=== PATIENT | female | born 1990 | race Caucasian/White ===

== ENCOUNTER 2019-02-26 21:35 | Emergency (ER) | payer OTHER | END 2019-02-27 00:56 | disposition home or self-care (01) | LOC: ER FS 02-27 00:56 ==

== ENCOUNTER 2019-02-27 21:00 | Inpatient (IN) | payer BC, OTHER ==
[~2019-02-27] VITALS: Ht 165.1 cm; Wt 77.1 kg
--- NOTE | 2019-02-27 21:10 | NUR ---
ANGELA DAVEY presented to unit via ambulation from home/ED, accompanied by , with c/o ABD PAIN. ANGELA DAVEY weighed, gowned, voided, and to bed. EFHM and TOCO applied, VS taken. ANGELA DAVEY oriented to bed controls, call light, TV, heat, and A/C controls.
[2019-02-27 21:17] VITALS: BP 104/63
[2019-02-27] MEDS ORDERED: D5 LR IV SOLUTION 1,000 ML IV ONE (21:34)
[2019-02-27] MEDS ORDERED: TERBUTALINE INJ 1 MG/ML (BRETHINE) AMP ONE (21:34)
[2019-02-27] MEDS ORDERED: TERBUTALINE INJ 1 MG/ML (BRETHINE) AMP SC ONE (21:45)
[2019-02-27] MEDS: D5 LR IV SOLUTION 1,000 ML IV SCH ×2 (21:54→23:18)
[2019-02-27] MEDS ORDERED: LOPERAMIDE 2 MG (IMODIUM) TABLET ONE (21:59)
[2019-02-27] MEDS: LOPERAMIDE 2 MG (IMODIUM) TABLET PO PRN ×2 (22:07→22:58)
[2019-02-27] MEDS ORDERED: ONDANSETRON 4 MG/2 ML (SDV) Z0FRAN ONE (22:16)
[2019-02-27] MEDS: ONDANSETRON 4 MG/2 ML (SDV) Z0FRAN IVP PRN ×2 (22:23→22:59)
[2019-02-27] MEDS ORDERED: fentaNYL INJECTION 100 MCG/2 ML AMP IVP ONE (23:00)
[2019-02-28] VITALS (27 sets, daily range): BP systolic 101–121; BP diastolic 56–70
[2019-02-28] MEDS: LOPERAMIDE 2 MG (IMODIUM) TABLET PO PRN (04:26)
[2019-02-28] MEDS ORDERED: TERBUTALINE INJ 1 MG/ML (BRETHINE) AMP SC ONE ×2 (06:00→12:15)
[2019-02-28] MEDS: ONDANSETRON 4 MG/2 ML (SDV) Z0FRAN IVP PRN (06:04)
[2019-02-28] MEDS: D5 LR IV SOLUTION 1,000 ML IV SCH ×2 (07:00→15:36)
--- NOTE | 2019-02-28 07:27 | History & Physical-OB ---
OB - Chief Complaint & HPI Date/Time Date of Admission: February 27, 2019Date of Admission: Date seen by a Provider: Feb 28, 2019 Time Seen by a Provider: 07:00 Chief Complaint/History OB-Reason for Admission/Chief: Intrauterine at 34 weeks 2. Diarrhea 3. Nausea with Vomiting 4. External Hemorroids 5. Bloody Stools Hx : 1 Hx Para: 0 Expected Date of Delivery: Apr 06, 2019 Gestational Age in Weeks: 34 Gestational Age in Days: 4 Admission Nurse Assessment Rev: Yes Allergies and Home Medications Allergies Coded Allergies: No Known Drug Allergies (Unverified , 02/26/19) Patient Home Medication List Home Medication List Reviewed: Yes OB - History Hx of Present Care: Yes Ultrasounds: Normal mid trimester US Obstetrical Complications: None Medical Complications: None Other Concerns: None Information Induced Hypertension: No Maternal Gestational Diabetes: No Hemorrhage: No Obstetrical History Hx : 1 Hx Para: 0 Hx Total # of Abortions (Spona: 0 Patient Past Medical History Noncontributory Social History/Family History Recent Infectious Disease Expo: No 2nd Hand Smoke Exposure: No OB - Admission Exam Physical Exam Vitals: Vital Signs 02/28/19 02:09 Temp 96.3 Pulse 88 Resp 18 B/P (MAP) 119/69 (86) O2 Delivery Room Air HEENT: NCAT Heart: Rhythm Normal Lungs: Clear Abdomen: Gravid Extremities: Normal Cervical Dilatation: None Station: Ballotable Membranes: Intact Heart Rate: 130's Accelerations: Accelerations Present Decelerations: No Decelerations Short Term Variability: Present Residential Variability: Average (6-25) Contractions on Admission: 6-10 Minutes Apart (Irregular) Intensity: Mild Salmon Scoring Tool (Modified) Dilation (cm): 0/Closed (0) Effacement (%): 0-30% (0) Descent/Station: -3 (0) Cervix Consistency: Medium(1) Subtract 1 point for: Nulliparity (-1) OB - Assessment/Plan/Diagnosis Assessment Assessment: other (Intrauterine at 34 weeks 2. Diarrhea 3. Nausea with Vomiting 4. External Hemorrhoids 5. Bloody Stools) Admission Dx at 34 weeks 2. Diarrhea 3. Nausea with Vomiting 4. External Hemorrhoids 5. Bloody Stools Admission Status: Inpatient Order (span 2 midnights) Reason for Inpatient Admission: with uncontrolled diarrhea Plan Plan: Other (IV fluids and antidiarrheals and antiemetics. External Monitor with observation) LUPE HOLLIS DO Feb 28, 2019 07:27
[2019-02-28] MEDS ORDERED: LACTATED RINGERS 500 ML IV SCH (07:52)
[2019-02-28] MEDS ORDERED: NIFEdipine 10 MG CAPS (WOMEN'S SERVICES ONLY!!!) PO NR (08:00)
--- NOTE | 2019-02-28 08:00 | NUR ---
ASSESSMENT PERFORMED. SEE LABOR FLOW SHEET FOR NURSE'S NOTES.
[2019-02-28] MEDS ORDERED: NIFEdipine 10 MG CAPS (WOMEN'S SERVICES ONLY!!!) PO SCH (12:00)
[2019-02-28] MEDS ORDERED: fentaNYL INJECTION 100 MCG/2 ML AMP IVP NR (12:45)
--- OUTSIDE RECORDS SUMMARY | 2019-02-28 12:55 | XMS REPORT | Continuity of Care Document ---
Author Organization Unknown Address Unknown Phone Unavailable Allergies There is no data. Medications There is no data. Problems There is no data. Procedures There is no data. Results Test Result Range QUAD SCREEN - 11/09/18 16:10 Maternal Weight 151 lbs NRG Est'd Date of Delivery 04/06/2019 NRG ERNIE Determined by LMP NRG Mother's Ethnic Origin NRG Number of Fetuses 1 NRG Insulin Depend Diabetic NO NRG Repeat Specimen NO NRG Hx Of Neural Tube Defects NO NRG Prev Down Synd NO NRG Donor Egg NO NRG Donor Age: Egg Retrieval NOT GIVEN NRG INTERPRETATION: NRG Risk for ONTD <1 IN 5000 NRG Age Risk Down Syndrome 1 IN 1001 NRG FRANCINE Down Syndrome Risk <1 IN 5000 NRG FRANCINE Trisomy 18 Risk <1 IN 5000 NRG AFP, Serum 39.9 ng/mL NRG AFP MoM 0.84 NRG Estriol, Free 1.54 ng/mL NRG Estriol MoM 1.05 NRG hCG, Serum 16.23 IU/mL NRG hCG MoM 0.75 NRG Inhibin A, Dimeric 189 pg/mL NRG Inhibin A MoM 1.10 NRG COMMENTS: NRG COMMENT NRG Calc'd Gestational Age 18.9 weeks NRG Cigarette smoker NOT GIVEN NRG GLUCOSE OZIEL 1 HOUR - 01/07/19 11:11 GLUCOSE, POSTPRANDIAL/ 1 HOUR 115 mg/dL See Note: CBC - 01/07/19 11:11 WHITE BLOOD CELL COUNT 9.8 Thousand/uL 3.8-10.8 RED BLOOD CELL COUNT 3.85 Million/uL 3.80-5.10 HEMOGLOBIN 11.5 g/dL 11.7-15.5 HEMATOCRIT 35.0 % 35.0-45.0 MCV 90.9 fL 80.0-100.0 MCH 29.9 pg 27.0-33.0 MCHC 32.9 g/dL 32.0-36.0 RDW 12.7 % 11.0-15.0 PLATELET COUNT 191 Thousand/uL 140-400 MPV 11.4 fL 7.5-12.5 ABSOLUTE NEUTROPHILS 7909 cells/uL 2878-8658 ABSOLUTE LYMPHOCYTES 1333 cells/uL 850-3900 ABSOLUTE MONOCYTES 441 cells/uL 200-950 ABSOLUTE EOSINOPHILS 88 cells/uL 15-500 ABSOLUTE BASOPHILS 29 cells/uL 0-200 NEUTROPHILS 80.7 % NRG LYMPHOCYTES 13.6 % NRG MONOCYTES 4.5 % NRG EOSINOPHILS 0.9 % NRG BASOPHILS 0.3 % NRG SYPHILIS (RPR W/ REFLEX CONFIRMATION) - 01/07/19 11:11 RPR (DX) W/REFL TITER AND CONFIRMATORY TESTING NON-REACTIVE NON-REACTIVE Encounters ACCT No. Visit Date/Time Discharge Status Pt. Type Provider Facility Loc./Unit Complaint [id number] 02/16/2019 09:30:00 02/16/2019 23:59:59 [facility] Outpatient AGNES KINCAID [facility] [id number] 01/07/2019 10:00:00 Document Registration [id number] 11/09/2018 15:45:00 Document Registration
--- NOTE | 2019-02-28 13:04 | Consultation ---
HPI History of Present Illness: 28 yo F that presented to L&D with bloody diarrhea that started yesterday. She is currently 34 weeks and has had no complications throughout this . States that she went to eat at a restaurant on and after that she has had profuse diarrhea and then yesterday starting passing blood. No one else in the family is sick. She has never had anything like this in the past. She is having abdominal pain and some contractions. They have sent down stool cultures. Source: patient Exam Limitations: no limitations Date seen by provider: Feb 28, 2019 Time Seen by Provider: 11:35 Attending Physician Mack Mendoza MD PCP Sundeep Perrin MD Consult Date of Admission Feb 28, 2019 at 12:20 Home Medications Home Medications Reviewed patient Home Medication Reconciliation performed by pharmacy medication reconciliations machine packaging technician and/or nursing. Patients Allergies have been reviewed. Allergies Coded Allergies: No Known Drug Allergies (Unverified , 02/26/19) JPC-Zeleoc-Bunzrt Hx Patient Social History 2nd Hand Smoke Exposure: No Recent Foreign Travel: No Contact w/other who traveled: No Recent Hopitalizations: No Recent Infectious Disease Expo: No Physical Abuse Screen: No Sexual Abuse: No Family Medical History Significant Family History: No Pertinent Family Hx Review of Systems (CHC) Constitutional: chills; No fever; malaise EENTM: no symptoms reported Respiratory: no symptoms reported; No cough, No dyspnea on exertion, No short of breath Cardiovascular: no symptoms reported; No chest pain, No edema, No palpitations Gastrointestinal: abdominal pain, diarrhea (Bloody) Genitourinary: no symptoms reported; No dysuria, No frequency, No hematuria : Yes Musculoskeletal: no symptoms reported; No back pain, No joint pain, No muscle pain Skin: no symptoms reported Psychiatric/Neurological: No Symptoms Reported Physical Exam-([facility]) Physical Exam Vital Signs VS - Last 72 Hours, by Label 02/27/19 02/28/19 21:17 02:09 Temp 97.0 96.3 Pulse 94 88 Resp 18 18 B/P (MAP) 104/63 (77) 119/69 (86) O2 Delivery Room Air Room Air Capillary Refill : General Appearance: mild distress Respiratory: chest non-tender, lungs clear, normal breath sounds, no respiratory distress, no accessory muscle use Cardiovascular: normal peripheral pulses, regular rate, rhythm, no edema, no murmur Gastrointestinal: normal bowel sounds, soft, other (Gravid uterus with irratibi lity) Rectal: heme positive stool, hemorrhoids Extremities: no pedal edema, no calf tenderness Neurologic/Psychiatric: alert, oriented x 3 Skin: normal color, warm/dry Assessment/Plan Assessment/Plan Admission Status: Observation (1) Bloody stools Status: Acute Assessment & Plan: - Concerned for infectious source given history, will get CBC, Stool cultures pending, Consult Dr Villasenor, VS and hgb remain stable (2) 34 weeks gestation of (3) Uterine contractions MACK MENDOZA MD Feb 28, 2019 13:04
[2019-02-28 13:33] LABS: BASOPHILS % (AUTO) 0 % (0-10); EOSINOPHILS % (AUTO) 0 % (0-10); HEMATOCRIT 35 % (35-52); HEMOGLOBIN 11.3 G/DL (11.5-16.0); LYMPHOCYTES # (AUTO) 0.9 X 10^3 (1.0-4.0); LYMPHOCYTES % (AUTO) 6 % (12-44); MEAN CORPUSCULAR HEMOGLOBIN 29 PG (25-34); MEAN CORPUSCULAR HGB CONC 33 G/DL (32-36); MEAN CORPUSCULAR VOLUME 90 FL (80-99); MEAN PLATELET VOLUME 11.2 FL (7.4-10.4); MONOCYTES # (AUTO) 1.2 X 10^3 (0.0-1.0); MONOCYTES % (AUTO) 8 % (0-12); NEUTROPHILS # (AUTO) 12.5 X 10^3 (1.8-7.8); NEUTROPHILS % (AUTO) 85 % (42-75); PLATELET COUNT 165 10^3/uL (130-400); RED CELL DISTRIBUTION WIDTH 13.1 % (10.0-14.5); WHITE BLOOD COUNT 14.7 10^3/uL (4.3-11.0)
[2019-02-28] MEDS ORDERED: CALCIUM GLUC. 10% 4.65 MEQ/10 ML VIAL IV PRN (14:15)
[2019-02-28] MEDS: MAGNESIUM SULFATE DRIP 500 ML IV SCH (15:55)
[2019-02-28] MEDS ORDERED: MAGNESIUM 4 GM/100 ML IVPB 100 ML IV SCH (16:15)
--- NOTE | 2019-02-28 16:44 | Consultation - Surgery ---
History of Present Illness History of Present Illness Patient Consulted On(vania/time) 02/28/19 16:38 Date Seen by Provider: Feb 28, 2019 Time Seen by Provider: 13:10 History of Present Illness Consult requested by Dr. Mendoza for bloody diarrhea. Seen and evaluated in Labor and Delivery. Patient 34 weeks and 5 days . She states diarrhea began 3 days ago after eating [place] food. First noticed blood in her stool yesterday. It started out as a small amount of blood in the stool but she states "now it is straight blood". She also complains of nausea and had one episode of emesis last night. She denies any pain or constipation. No family history of Crohns disease or ulcerative colitis. at bedside. Allergies and Home Medications Allergies Coded Allergies: No Known Drug Allergies (Unverified , 02/26/19) Patient Home Medication List Home Medication List Reviewed: Yes Past Whuvacu-Bnijvw-Fxmwvh Hx Patient Social History Alcohol Use: Denies Use 2nd Hand Smoke Exposure: No Recent Foreign Travel: No Contact w/Someone Who Travel: No Recent Infectious Disease Expo: No Recent Hopitalizations: No Physical Abuse Screen: No Sexual Abuse: No Seasonal Allergies Seasonal Allergies: No Surgeries History of Surgeries: Yes Surgeries: Orthopedic, Tonsillectomy Respiratory History of Respiratory Disorde: No Cardiovascular History of Cardiac Disorders: No Neurological History of Neurological Disord: No Reproductive System Hx : 1 Hx Para: 0 Hx Total # of Abortions (Spona: 0 Genitourinary History of Genitourinary Disor: No Gastrointestinal History of Gastrointestinal Di: No Musculoskeletal History of Musculoskeletal Dis: No Endocrine History of Endocrine Disorders: No HEENT History of HEENT Disorders: No Cancer History of Cancer: No Psychosocial History of Psychiatric Problem: No Integumentary History of Skin or Integumenta: No Blood Transfusions History of Blood Disorders: No Family Medical History Significant Family History: No Pertinent Family Hx Review of Systems-General Constitutional: see HPI EENTM: no symptoms reported Respiratory: no symptoms reported Cardiovascular: no symptoms reported Gastrointestinal: see HPI, diarrhea, nausea, vomiting Genitourinary: no symptoms reported : Yes Musculoskeletal: no symptoms reported Skin: no symptoms reported Psychiatric/Neurological: No Symptoms Reported Physical Exam-General Problems Physical Exam Vital Signs Vital Signs - First Documented 02/27/19 21:17 Temp 97.0 Pulse 94 Resp 18 B/P (MAP) 104/63 (77) O2 Delivery Room Air Capillary Refill : General Appearance: WD/WN, no apparent distress HEENT: PERRL/EOMI, normal ENT inspection, pharynx normal Neck: non-tender, full range of motion, supple Respiratory: chest non-tender, no respiratory distress, no accessory muscle use Cardiovascular: normal peripheral pulses, regular rate, rhythm, no edema Gastrointestinal: non tender, soft, other (35 week abdomen) Rectal: normal rectal tone, other (no gross blood) Back: normal inspection, no CVA tenderness Extremities: normal range of motion, non-tender, normal inspection, no pedal edema Neurologic/Psychiatric: logging equipment operator II-XII nml as tested, no motor/sensory deficits, alert, normal mood/affect, oriented x 3 Skin: normal color, warm/dry Lymphatic: no adenopathy Data Review Labs Laboratory Tests 02/28/19 13:15: White Blood Count 14.7H, Red Blood Count 3.85L, Hemoglobin 11.3L, Hematocrit 35, Mean Corpuscular Volume 90, Mean Corpuscular Hemoglobin 29, Mean Corpuscular Hemoglobin Concent 33, Red Cell Distribution Width 13.1, Platelet Count 165, Mean Platelet Volume 11.2H, Neutrophils (%) (Auto) 85H, Lymphocytes (%) (Auto) 6L, Monocytes (%) (Auto) 8, Eosinophils (%) (Auto) 0, Basophils (%) (Auto) 0, Neutrophils # (Auto) 12.5H, Lymphocytes # (Auto) 0.9L, Monocytes # (Auto) 1.2H, Eosinophils # (Auto) 0.0, Basophils # (Auto) 0.0 Microbiology 02/28/19 C. difficile GDH Antigen & Toxins - Final, Complete 02/28/19 Rotavirus Antigen - Final, Complete Assessment/Plan Assessment/Plan Assessment/Plan Bloody diarrhea 34 weeks 5 days Clear liquid diet Follow hgb monitoring Plan anoscopy, see note below Transfuse as needed, prbc Stool cultures Recommend colonoscopy 3-6 months after delivery for further evaluation of bleeding cause if worsening condition or bleeding worsening would consider endoscopy at that time. PROCEDURE: Anoscope inserted into rectum after digital rectal exam. No palpable mass palpable. No gross blood. Rectum had normal appearing mucosa. No trauma to mucosa or anal canal. Anoscope was slowly removed noting no other pathology. DEQUAN SOTO DO Feb 28, 2019 16:44
[2019-02-28] MEDS ORDERED: fentaNYL INJECTION 100 MCG/2 ML AMP IVP ONE (18:15)
--- NOTE | 2019-02-28 20:05 | NUR ---
Pt resting quietly in room. Assessments done. Reflexes diminished. Urine output 48cc. States the pressure in her chest is the same as before. Rating pain a 4/10. No needs at this time.
--- NOTE | 2019-02-28 21:00 | NUR ---
37cc of urine output.
--- NOTE | 2019-02-28 21:45 | NUR ---
Assisted pt to bathroom. Had bloody stool-200cc. Pt states it is the same that it has been throughout the day. Has not had bowel movement since approx 1500 today. VS and reflexes done. Urine output 38cc.
--- NOTE | 2019-02-28 22:04 | NUR ---
Dr. Giraldo notified of pt status and lab results. Order to repeat MG level in morning with other labs. Can give Fentanyl 50mcg again if needed. No other orders at this time.
[2019-03-01] VITALS (26 sets, daily range): BP systolic 100–117; BP diastolic 57–69
[2019-03-01] MEDS: MAGNESIUM SULFATE DRIP 500 ML IV SCH ×4 (00:13→23:57)
--- NOTE | 2019-03-01 04:00 | NUR ---
Helped pt up to bathroom. bloody Bm. 350cc
[2019-03-01] MEDS: D5 LR IV SOLUTION 1,000 ML IV SCH ×2 (04:32→23:57)
[2019-03-01 05:19] LABS: BASOPHILS % (AUTO) 0 % (0-10); EOSINOPHILS % (AUTO) 0 % (0-10); HEMATOCRIT 34 % (35-52); HEMOGLOBIN 11.4 G/DL (11.5-16.0); LYMPHOCYTES % (AUTO) 6 % (12-44); MEAN CORPUSCULAR HEMOGLOBIN 30 PG (25-34); MEAN CORPUSCULAR HGB CONC 34 G/DL (32-36); MEAN CORPUSCULAR VOLUME 89 FL (80-99); MEAN PLATELET VOLUME 11.4 FL (7.4-10.4); MONOCYTES # (AUTO) 1.5 X 10^3 (0.0-1.0); MONOCYTES % (AUTO) 8 % (0-12); NEUTROPHILS # (AUTO) 15.3 X 10^3 (1.8-7.8); NEUTROPHILS % (AUTO) 86 % (42-75); PLATELET COUNT 179 10^3/uL (130-400); RED CELL DISTRIBUTION WIDTH 13.3 % (10.0-14.5); WHITE BLOOD COUNT 17.8 10^3/uL (4.3-11.0)
--- NOTE | 2019-03-01 06:30 | NUR ---
Dr Giraldo here. Order to give 500cc bolus of d5lr. Will continue with mag. No other orders at this time.
--- NOTE | 2019-03-01 07:00 | Progress Note ---
Standard Progress Note Progress Notes/Assess & Plan Date Seen by a Provider: Mar 01, 2019 Time Seen by a Provider: 06:45 Progress/Assessment & Plan Subjective: Ms. Mehta admits to feeling a little better. Admits to only having three loose stools overnight, still having irregular contractions despite being on Magnesium. No more vomiting. Objective: Vital sign are stable Heart: Regular rate and rhythm Lungs: Clear to auscultation bilaterally Abdomen: Bowel sounds throughout abdomen, gravid, FHR 130, irregular contractions Assessment: Intrauterine at 34 weeks 2. Diarrhea 3. Bloody Stools 4. Threatened Labor 5. Hyperemesis Plan: Awaiting stool cultures. Dr. Mendoza is following diarrhea and bloody stools. We will continue Mg Sulfate for now, but will try to get her switched over to oral Procardia. External Monitoring with observation. Final Diagnosis Intrauterine at 34 weeks 2. Diarrhea 3. Bloody Stools 4. Hyperemesis 5. Threatened Labor LUPE HOLLIS DO Mar 01, 2019 07:00
--- NOTE | 2019-03-01 07:33 | NUR ---
Report given to Karthik WU
--- NOTE | 2019-03-01 08:13 | Progress Note - Surgery ---
DARCI RODRIGUEZ,MED STUDENT 03/01/19 0813: Subjective Date Seen by a Provider: Mar 01, 2019 Time Seen by a Provider: 07:35 Subjective/Events-last exam Patient has had 3 more episodes of bloody diarrhea since yesterday at 1300. Hgb today is 11.4, slightly increased from 11.3 yesterday. No new complaints at this time. Denies nausea, vomiting, or abdominal pain. Family at bedside. Stool culture reviewed which was negative for C.difficile antigen, C.difficile toxin A/B negative, and rotavirus toxin negative Review of Systems General: No Chills Gastrointestinal: Diarrhea, Hematochezia; No: Nausea, Vomiting, Abdominal Pain Objective Exam Vital Signs Date Time Temp Pulse Resp B/P (MAP) Pulse Ox O2 Delivery O2 Flow Rate FiO2 03/01/19 07:06 100 20 108/69 (82) 03/01/19 07:05 97.8 100 20 108/69 (82) 03/01/19 06:00 97 20 110/67 (81) 03/01/19 06:00 97.9 100 20 107/67 (80) 03/01/19 05:05 97 20 110/67 (81) 03/01/19 05:05 97 18 110/67 (81) 03/01/19 04:15 96 20 102/63 (76) 03/01/19 04:15 97.2 96 18 102/63 (76) Room Air 03/01/19 03:06 100 20 107/66 (80) 03/01/19 03:00 97.4 108 20 107/66 (80) 03/01/19 02:00 97.6 102 20 104/61 (75) 03/01/19 02:00 102 20 104/61 (75) 03/01/19 01:00 104 20 117/58 (77) 03/01/19 01:00 97.2 104 20 117/58 (77) Room Air 03/01/19 00:00 97.2 109 20 101/62 (75) 03/01/19 00:00 109 20 101/62 (75) 02/28/19 23:00 97.9 104 20 112/66 (81) Room Air 02/28/19 23:00 104 20 112/66 (81) 02/28/19 22:00 107 20 114/70 (85) 02/28/19 22:00 98.1 107 18 114/70 (85) 02/28/19 21:00 99.0 100 18 115/65 (82) Room Air 02/28/19 21:00 100 20 115/65 (82) 02/28/19 20:00 105 18 117/66 (83) 02/28/19 20:00 99.4 105 18 117/66 (83) Room Air 02/28/19 19:02 100 18 121/70 (87) Room Air 02/28/19 19:00 100 18 121/70 (87) 02/28/19 18:00 96 18 114/67 (83) 02/28/19 18:00 97.7 96 18 114/67 (83) Room Air 02/28/19 17:31 106 18 115/69 (84) Room Air 02/28/19 17:30 106 18 115/69 (84) 02/28/19 17:02 98 18 114/66 (82) 02/28/19 17:00 98 18 114/66 (82) 02/28/19 16:40 95 18 116/68 (84) 02/28/19 16:40 95 18 116/68 (84) 02/28/19 16:23 100 18 110/68 (82) Room Air 02/28/19 16:22 100 18 110/68 (82) 02/28/19 16:10 93 18 113/65 (81) Room Air 02/28/19 16:08 93 18 113/65 (81) 02/28/19 15:55 95 18 109/65 (80) Room Air 02/28/19 15:52 95 18 109/65 (80) 02/28/19 15:00 98.7 93 18 116/68 (84) Room Air 02/28/19 14:06 100 18 114/63 (80) Room Air 02/28/19 13:06 109 18 114/65 (81) Room Air 02/28/19 11:50 104 18 101/58 (72) Room Air 02/28/19 10:44 104 18 111/63 (79) Room Air 02/28/19 09:51 113 18 110/64 (79) Room Air 02/28/19 08:42 116 18 101/56 (71) Room Air l I & O 03/01/19 07:00 Intake Total 4850 ml Output Total 1522 ml Balance 3328 ml Capillary Refill : General Appearance: No Apparent Distress HEENT: PERRL/EOMI, Normal ENT Inspection Neck: Full Range of Motion, Normal Inspection, Non Tender Respiratory: Chest Non Tender, No Accessory Muscle Use, No Respiratory Distress Cardiovascular: Regular Rate, Rhythm Gastrointestinal: non tender, soft, other (35 week abdomen) Extremity: Normal Inspection, Normal Range of Motion, Non Tender Neurologic/Psychiatric: Alert, Oriented x3, No Motor/Sensory Deficits, Normal Mood/Affect Skin: Normal Color, Warm/Dry Lymphatic: No Adenopathy Results Lab Laboratory Tests 02/28/19 13:15: White Blood Count 14.7H, Red Blood Count 3.85L, Hemoglobin 11.3L, Hematocrit 35, Mean Corpuscular Volume 90, Mean Corpuscular Hemoglobin 29, Mean Corpuscular Hemoglobin Concent 33, Red Cell Distribution Width 13.1, Platelet Count 165, Mean Platelet Volume 11.2H, Neutrophils (%) (Auto) 85H, Lymphocytes (%) (Auto) 6L, Monocytes (%) (Auto) 8, Eosinophils (%) (Auto) 0, Basophils (%) (Auto) 0, Neutrophils # (Auto) 12.5H, Lymphocytes # (Auto) 0.9L, Monocytes # (Auto) 1.2H, Eosinophils # (Auto) 0.0, Basophils # (Auto) 0.0 02/28/19 21:30: Magnesium Level 4.5H 03/01/19 05:00: White Blood Count 17.8H, Red Blood Count 3.79L, Hemoglobin 11.4L, Hematocrit 34L , Mean Corpuscular Volume 89, Mean Corpuscular Hemoglobin 30, Mean Corpuscular Hemoglobin Concent 34, Red Cell Distribution Width 13.3, Platelet Count 179, Mean Platelet Volume 11.4H, Neutrophils (%) (Auto) 86H, Lymphocytes (%) (Auto) 6L, Monocytes (%) (Auto) 8, Eosinophils (%) (Auto) 0, Basophils (%) (Auto) 0, Neutrophils # (Auto) 15.3H, Lymphocytes # (Auto) 1.0, Monocytes # (Auto) 1.5H, Eosinophils # (Auto) 0.0, Basophils # (Auto) 0.0, Magnesium Level 5.5#*H Microbiology 8/5/19 C. difficile GDH Antigen & Toxins - Final, Complete 02/28/19 Rotavirus Antigen - Final, Complete Assessment/Plan Assessment/Plan Assessment/Plan Bloody diarrhea 34 weeks 6 days Follow hgb monitoring Transfuse as needed, prbc Recommend colonoscopy 3-6 months after delivery for further evaluation of bleeding cause if worsening condition or bleeding worsening would consider endoscopy at that time. will follow DEQUAN VILLASENOR DO 03/01/19 1653: Subjective Subjective/Events-last exam Patient no abdominal pain. Still some bloody diarrhea. + shiga toxin Assessment/Plan Assessment/Plan Assessment/Plan + shiga toxin conservative management repeat labs in am Supervisory-Addendum Brief Verification & Attestation Time: Verification & Attestat.: 16:52 Participated in pt care: history, MDM, physical Personally performed: exam, history, MDM, supervision of care Care discussed with: Medical Student Procedures: n/a Results interpretation: Verified all documentation Verification and Attestation of Medical Student E/M Service A medical student performed and documented this service in my presence. I reviewed and verified all information documented by the medical student and made modifications to such information, when appropriate. I personally performed the physical exam and medical decision making. Dequan Villasenor, Mar 01, 2019,16:52 DARCI RODRIGUEZ,MED STUDENT Mar 01, 2019 08:13 DEQUAN VILLASENOR DO Mar 01, 2019 16:53
--- NOTE | 2019-03-01 10:41 | NUR ---
Report to Ekta Brooke RN.
--- NOTE | 2019-03-01 12:15 | NUR ---
calf SCD's to LE's applied.
--- NOTE | 2019-03-01 12:45 | NUR ---
assisted pt to BR with standby assist x2. pt c/o feeling "weak". +diarrhea stool noted. approx. 50ml, bloody. assisted with jaylan-care. back to bed. family @ bedside.
--- NOTE | 2019-03-01 15:22 | NUR ---
lab called with stool culture report of Shiga Toxin 2.
--- NOTE | 2019-03-01 15:37 | NUR ---
here to discuss lab results with pt and family .
--- NOTE | 2019-03-01 15:49 | NUR ---
report given to BRYCE Angeles.
[2019-03-01] MEDS ORDERED: APAP 300 MG/CODEINE 30 MG (TYLENOL #3) TAB PO ONE (17:15)
--- NOTE | 2019-03-01 20:37 | Progress Note ---
Subjective Subjective/Events-last exam Patient stools have slowed down. Still having bloody stools. Pain improved. Tolerating CLD. Culture returned with shiga toxin, bacteria culture still pending Review of Systems Pulmonary: No Dyspnea, No Cough Cardiovascular: No: Chest Pain, Palpitations Gastrointestinal: Abdominal Pain, Diarrhea; No: Nausea, Vomiting Objective Exam Last Set of Vital Signs Vital Signs Date Time Temp Pulse Resp B/P (MAP) Pulse Ox O2 Delivery O2 Flow Rate FiO2 03/01/19 19:00 93 18 102/64 (77) Room Air 03/01/19 18:00 98.6 02/28/19 08:05 97 Capillary Refill : I&O Intake and Output 03/01/19 00:00 Intake Total 4000 ml Output Total 1215 ml Balance 2785 ml Intake Oral 1500 ml IV Total 2500 ml Output Urine Total 1215 ml General: Alert, Oriented X3, Cooperative, No Acute Distress Lungs: Clear to Auscultation, Normal Air Movement Heart: Regular Rate, No Murmurs Abdomen: Normal Bowel Sounds, Soft, Other (LLQ ttp, no rebound or gaurding, gravid uterus) Extremities: No Edema, No Tenderness/Swelling Results/Procedures Lab Laboratory Tests 02/28/19 21:30: Magnesium Level 4.5H 03/01/19 05:00: Magnesium Level 5.5#*H, White Blood Count 17.8H, Red Blood Count 3.79L, Hemoglobin 11.4L, Hematocrit 34L, Mean Corpuscular Volume 89, Mean Corpuscular Hemoglobin 30, Mean Corpuscular Hemoglobin Concent 34, Red Cell Distribution Width 13.3, Platelet Count 179, Mean Platelet Volume 11.4H, Neutrophils (%) (Auto) 86H, Lymphocytes (%) (Auto) 6L, Monocytes (%) (Auto) 8, Eosinophils (%) ( Auto) 0, Basophils (%) (Auto) 0, Neutrophils # (Auto) 15.3H, Lymphocytes # (Auto) 1.0, Monocytes # (Auto) 1.5H, Eosinophils # (Auto) 0.0, Basophils # (Auto) 0.0 Microbiology 02/28/19 C. difficile GDH Antigen & Toxins - Final, Complete 02/28/19 Rotavirus Antigen - Final, Complete Assessment/Plan Assessment/Plan (1) Bloody stools Status: Acute Assessment & Plan: - Concerned for infectious source given history, will get CBC, Stool cultures pending, Consult Dr Villasenor, VS and hgb remain stable 03/01: Culture with shinga toxin, if Ecoli source then let it run its course, if shigella then patient will need antibiotics (2) 34 weeks gestation of Assessment & Plan: - Managed by Dr Giraldo, patient is on mag protocol at this time for (3) Uterine contractions MACK FUNG MD Mar 01, 2019 20:37
[2019-03-02] VITALS (27 sets, daily range): BP systolic 88–126; BP diastolic 48–67
[2019-03-02 05:28] LABS: HEMOGLOBIN 10.6 G/DL (11.5-16.0); RED CELL DISTRIBUTION WIDTH 13.5 % (10.0-14.5)
[2019-03-02 05:46] LABS: BUN/CREATININE RATIO 4; CARBON DIOXIDE 20 MMOL/L (21-32); CHLORIDE 102 MMOL/L (98-107); CREATININE SERUM 0.57 MG/DL (0.60-1.30); GFR ESTIMATED > 60; GLUCOSE 107 MG/DL (70-105); POTASSIUM 3.3 MMOL/L (3.6-5.0); SODIUM 131 MMOL/L (135-145)
[2019-03-02 05:49] LABS: CALCIUM 5.9 MG/DL (8.5-10.1); MAGNESIUM 6.4 MG/DL (1.8-2.4)
--- NOTE | 2019-03-02 06:10 | NUR ---
Dr. Christiansons here to see patient. Update given on patient. Monitor tracing reviewed per DrLalo Orders received.
--- NOTE | 2019-03-02 06:20 | Progress Note ---
Standard Progress Note Progress Notes/Assess & Plan Date Seen by a Provider: Mar 02, 2019 Time Seen by a Provider: 06:15 Progress/Assessment & Plan Subjective: Ms. Mehta admits to feeling a little better. Admits to only having three loose stools overnight, still having irregular contractions despite being on Magnesium. No more vomiting. Objective: Vital sign are stable Heart: Regular rate and rhythm Lungs: Clear to auscultation bilaterally Abdomen: Bowel sounds throughout abdomen, gravid, FHR 130, irregular contractions Assessment: Intrauterine at 34 weeks 2. Diarrhea 3. Bloody Stools 4. Threatened Labor 5. Hyperemesis Plan: Awaiting stool cultures. Dr. Mendoza is following diarrhea and bloody stools. We will continue Mg Sulfate for now, but will try to get her switched over to oral Procardia. External Monitoring with observation. LUPE HOLLIS DO Mar 02, 2019 06:20
[2019-03-02] MEDS: NIFEdipine 10 MG CAPS (WOMEN'S SERVICES ONLY!!!) PO SCH ×4 (06:21→23:47)
--- NOTE | 2019-03-02 06:27 | Progress Note ---
Standard Progress Note Progress Notes/Assess & Plan Date Seen by a Provider: Mar 02, 2019 Time Seen by a Provider: 06:15 Progress/Assessment & Plan Subjective: Ms. Mehta admits to feeling a little better. Admits to only having three loose stools overnight, still having irregular contractions despite being on Magnesium. No more vomiting. Objective: Vital sign are stable Heart: Regular rate and rhythm Lungs: Clear to auscultation bilaterally Abdomen: Bowel sounds throughout abdomen, gravid, FHR 130, irregular contractions Assessment: Intrauterine at 34 weeks 2. Diarrhea 3. Bloody Stools 4. Threatened Labor 5. Hyperemesis Plan: Awaiting stool cultures. Dr. Mendoza is following diarrhea and bloody stools. We will continue Mg Sulfate for now, but will try to get her switched over to oral Procardia. External Monitoring with observation. March 02, 2019 Subjective: Ms. Mehta states that she is feeling much better, would like to not feel so sluggish. Admits to having only one loose still overnight (actually, this morning). States that her contractions are very irregular and not as painful. Objective: Vital signs appear stable Heart: Regular rate and rhythm with appreciable murmur Lungs: Clear to auscultation with good respiratory effort Abdomen: Gravid, good bowel sounds, no tenderness, FHR 140, irregular contractions Extremities: No cyanosis or clubbing. Trace edema of lower extemities Assessment: IUP at 35 weeks 2. Diarrhea (improving) 3. Bloody Stools 4. Threatened Labor Plan: Continue IV hydration. I am going to try to wean Ms. Mehta off of the Magnesium and switch her to oral Procardia. Dr. Mendoza will continue to manage diarrhea (culture and sensitivity results may be back today)--we will treat accordingly. LUPE HOLLIS DO Mar 02, 2019 06:27
--- NOTE | 2019-03-02 07:00 | NUR ---
report received from BRYCE Barahona. previous RN questioned r/t Magnesium order and initiating Procardia.
--- NOTE | 2019-03-02 07:50 | NUR ---
magnesium protocol reviewed r/t administration of Procardia. concerns verbalized to Tuan, director of .
--- NOTE | 2019-03-02 07:56 | NUR ---
Magnesium infusion dc'd. pt somnolent. unable to move extremities by self. remains @ side.
--- NOTE | 2019-03-02 08:03 | NUR ---
office was called. in surgery in [place]. [phone]- cell phone was called. no answer, message left.
--- NOTE | 2019-03-02 08:30 | NUR ---
assisted up to bedside commode x3 standby assist. pt tolerated fairly well. c/o feeling "weak." +BM noted. dark, minda brown color noted. jaylan-care offered. moderate edema noted to pt's labia majora/minora. pt denies having latex allergy. recommended ice pack to area and mesh panties. Addendum: 03/02/19 at 1505 by VERONICA BUCIO RN bed linens changed.
--- NOTE | 2019-03-02 08:38 | NUR ---
returned phone call. notified of Magnesium dc'd. status reviewed. may d/c davon today, pt may shower.
--- NOTE | 2019-03-02 08:49 | NUR ---
pt smiling r/t able to lift Left arm with out assist.
--- NOTE | 2019-03-02 09:18 | NUR ---
here to see pt.
--- NOTE | 2019-03-02 09:42 | NUR ---
here to see pt.
--- NOTE | 2019-03-02 10:45 | NUR ---
assisted up to BR with standby assist x2. tolerated well. +small BM. jaylan-care offered. 1050- up to shower. IV converted to HL. mother remains @ side for assist.
--- NOTE | 2019-03-02 11:15 | NUR ---
this RN into pt's room. pt standing in room, brushing teeth. mother combing pt's hair. mother reports another small brownish BM. pt reports feeling better after showering. ice pack and mesh panties in place.
--- NOTE | 2019-03-02 11:32 | Progress Note ---
Subjective Subjective/Events-last exam Patient feeling better this AM. Stools are less bright red blood and more minda colored. Pain is improved. Still having ctxs. Appetite is improving Review of Systems Gastrointestinal: Nausea, Abdominal Pain, Diarrhea, Hematochezia; No: Vomiting Genitourinary: No Dysuria, No Frequency, No Incontinence Objective Exam Last Set of Vital Signs Vital Signs Date Time Temp Pulse Resp B/P (MAP) Pulse Ox O2 Delivery O2 Flow Rate FiO2 03/02/19 07:00 109 18 103/54 (70) 03/02/19 06:00 98.4 03/01/19 19:00 Room Air 02/28/19 08:05 97 Capillary Refill : I&O Intake and Output 03/02/19 00:00 Intake Total 5350 ml Output Total 2357 ml Balance 2993 ml Intake Oral 3350 ml IV Total 2000 ml Output Urine Total 2357 ml # Bowel Movements 1 General: Alert, Oriented X3, Cooperative, No Acute Distress Lungs: Clear to Auscultation, Normal Air Movement Heart: Regular Rate, No Murmurs Abdomen: Normal Bowel Sounds, Soft, Other (Gravid uterus) Extremities: No Edema, No Tenderness/Swelling Results/Procedures Lab Laboratory Tests 03/02/19 05:05: White Blood Count 16.0H, Red Blood Count 3.56L, Hemoglobin 10.6L, Hematocrit 32L , Mean Corpuscular Volume 89, Mean Corpuscular Hemoglobin 30, Mean Corpuscular Hemoglobin Concent 33, Red Cell Distribution Width 13.5, Platelet Count 198, Mean Platelet Volume 11.0H, Sodium Level 131L, Potassium Level 3.3L, Chloride Level 102, Carbon Dioxide Level 20L, Anion Gap 9, Blood Urea Nitrogen < 2L, Creatinine 0.57L, Estimat Glomerular Filtration Rate > 60, BUN/Creatinine Ratio 4, Glucose Level 107H, Calcium Level 5.9*L, Magnesium Level 6.4*H Microbiology 02/28/19 C. difficile GDH Antigen & Toxins - Final, Complete 02/28/19 Rotavirus Antigen - Final, Complete Assessment/Plan Assessment/Plan (1) Shiga toxin-producing Escherichia coli (E. coli) (STEC), unspecified Status: Acute Assessment & Plan: 03/02: Continue supportive management, Recommend CBC and CMP daily while in hosp to monitor hgb and Cr for signs of HUS, Will sign off at this time, Please feel free to call with any questions (2) Bloody stools Status: Acute Assessment & Plan: - Concerned for infectious source given history, will get CBC, Stool cultures pending, Consult Dr Villasenor, VS and hgb remain stable 03/01: Culture with shinga toxin, if Ecoli source then let it run its course, if shigella then patient will need antibiotics (3) 34 weeks gestation of Assessment & Plan: - Managed by Dr Giraldo, patient is on mag protocol at this time for (4) Uterine contractions MACK FUNG MD Mar 02, 2019 11:32
--- NOTE | 2019-03-02 13:04 | Progress Note - Surgery ---
Subjective Date Seen by a Provider: Mar 02, 2019 Time Seen by a Provider: 10:28 Subjective/Events-last exam Patient feeling better today. No abdominal pain. Still with small amount of bloody diarrhea. Denies n/v fever sweats chills shortness of breath or chest pain. 35 weeks . Objective Exam Vital Signs Date Time Temp Pulse Resp B/P (MAP) Pulse Ox O2 Delivery O2 Flow Rate FiO2 03/02/19 07:00 109 18 103/54 (70) 03/02/19 07:00 109 18 103/54 (70) 03/02/19 06:00 95 18 103/64 (77) 03/02/19 06:00 98.4 95 18 103/64 (77) 03/02/19 05:00 98.4 90 18 126/58 (80) 03/02/19 05:00 90 18 126/58 (80) 03/02/19 04:00 89 18 106/56 (73) 03/02/19 04:00 98.1 89 18 106/56 (73) 03/02/19 03:00 92 18 101/57 (72) 03/02/19 03:00 98.8 92 18 101/57 (72) 03/02/19 02:00 98.7 99 18 107/59 (75) 03/02/19 02:00 99 18 107/59 (75) 03/02/19 01:00 93 18 108/59 (75) 03/02/19 01:00 93 18 108/59 (75) 03/02/19 00:00 98.6 91 16 103/65 (78) 03/02/19 00:00 91 18 103/65 (78) 03/01/19 23:00 98.9 93 16 104/60 (75) 03/01/19 23:00 93 16 104/60 (75) 03/01/19 22:00 97.5 93 16 104/57 (73) 03/01/19 22:00 93 18 104/57 (73) 03/01/19 21:00 98.0 100 18 100/62 (75) 03/01/19 21:00 100 18 100/62 (75) 03/01/19 20:00 99.0 89 16 101/62 (75) 03/01/19 20:00 89 16 101/62 (75) 03/01/19 19:00 93 18 102/64 (77) Room Air 03/01/19 19:00 93 18 102/64 (77) 03/01/19 18:00 105 18 104/61 (75) 03/01/19 18:00 98.6 105 18 104/61 (75) Room Air 03/01/19 17:00 98 18 109/65 (80) 03/01/19 17:00 98.4 98 18 109/65 (80) Room Air 03/01/19 16:00 97.9 97 18 102/68 (79) Room Air 03/01/19 16:00 97 18 102/68 (79) 03/01/19 15:00 95 18 104/64 (77) 03/01/19 15:00 99 18 106/64 (78) Room Air 03/01/19 14:00 96 18 100/63 (75) 03/01/19 14:00 97.3 96 18 100/63 (75) Room Air 03/01/19 13:00 95 18 104/67 (79) Room Air 03/01/19 13:00 95 18 104/64 (77) I & O 03/02/19 07:00 Intake Total 4200 ml Output Total 4750 ml Balance -550 ml Capillary Refill : General Appearance: No Apparent Distress HEENT: PERRL/EOMI, Normal ENT Inspection Neck: Full Range of Motion, Normal Inspection, Non Tender Respiratory: Chest Non Tender, No Accessory Muscle Use, No Respiratory Distress Cardiovascular: Regular Rate, Rhythm Gastrointestinal: non tender, soft, other (35 week abdomen) Extremity: Normal Inspection, Normal Range of Motion, Non Tender Neurologic/Psychiatric: Alert, Oriented x3, No Motor/Sensory Deficits, Normal Mood/Affect Skin: Normal Color, Warm/Dry Lymphatic: No Adenopathy Results Lab Laboratory Tests 03/02/19 05:05: White Blood Count 16.0H, Red Blood Count 3.56L, Hemoglobin 10.6L, Hematocrit 32L , Mean Corpuscular Volume 89, Mean Corpuscular Hemoglobin 30, Mean Corpuscular Hemoglobin Concent 33, Red Cell Distribution Width 13.5, Platelet Count 198, Mean Platelet Volume 11.0H, Sodium Level 131L, Potassium Level 3.3L, Chloride Level 102, Carbon Dioxide Level 20L, Anion Gap 9, Blood Urea Nitrogen < 2L, Creatinine 0.57L, Estimat Glomerular Filtration Rate > 60, BUN/Creatinine Ratio 4, Glucose Level 107H, Calcium Level 5.9*L, Magnesium Level 6.4*H Microbiology 02/28/19 C. difficile GDH Antigen & Toxins - Final, Complete 02/28/19 Rotavirus Antigen - Final, Complete Assessment/Plan Assessment/Plan Assessment/Plan bloody diarrhea 35 weeks + shiga toxin conservative management would follow labs no surgical intervention will sign off call if needed. would recommend colonoscopy after delivery to rule out any other source of bleeding. DEQUAN SOTO DO Mar 02, 2019 13:04
[2019-03-02] MEDS: D5 LR IV SOLUTION 1,000 ML IV SCH (13:13)
--- NOTE | 2019-03-02 13:20 | NUR ---
mays catheter dc'd per pt's request. 350cc dark, angélica urine noted. ice pack removed. moderate amount edema noted in labia. 1325- up to BR. voided approx 75cc clear, yellow urine. +small BM. reddish brown in color.
--- NOTE | 2019-03-02 15:20 | NUR ---
assisted up to BR. pt tolerated well. +void 250cc clear urine. 300cc light brown liquid stool noted.
--- NOTE | 2019-03-02 15:37 | NUR ---
was called r/t pt's request for Tylenol. c/o BRANHAM. order received. update given on status.
[2019-03-02] MEDS ORDERED: ACETAMINOPHEN 500 MG TAB (TYLENOL) PO PRN (15:45)
--- NOTE | 2019-03-02 17:53 | NUR ---
assisted up to BR. pt reports "abdomen not hurting as much". voided 400cc dark, yellow urine. 100cc diarrhea. brown in color. no blood visible.
--- NOTE | 2019-03-02 19:21 | NUR ---
report given to BRYCE Alcala.
--- NOTE | 2019-03-02 19:26 | NUR ---
was called. pt requesting applesauce to eat. order received to advance diet to BRAT diet. update given on status.
--- NOTE | 2019-03-02 19:33 | NUR ---
POC reviewed with pt and r/t BRAT diet.
[2019-03-03] VITALS (10 sets, daily range): BP systolic 98–109; BP diastolic 55–65
[2019-03-03] MEDS: D5 LR IV SOLUTION 1,000 ML IV SCH (02:29)
[2019-03-03] MEDS: NIFEdipine 10 MG CAPS (WOMEN'S SERVICES ONLY!!!) PO SCH (06:00)
--- NOTE | 2019-03-03 09:05 | NUR ---
here. dismissal orders received.
--- NOTE | 2019-03-03 09:19 | Discharge Summary ---
Diagnosis/Chief Complaint Date of Admission Feb 28, 2019 at 12:20 Date of Discharge March 03, 2019 Discharge Date: Mar 03, 2019 Discharge Time: 09:05 Admission Diagnosis Admission Diagnosis Intrauterine at 34 weeks 2. Diarrhea 3. Bloody Stools 4. Pelvic Pain 5. Threatened Labor Discharge Diagnosis Intrauterine at 34 weeks 2. Diarrhea 3. Bloody Stools 4. Pelvic Pain 5. Threatened Labor 6. Gastroenteritis 7. Headache Reason Hospital Visit with uncontrolled bloody diarrhea Discharge Summary Hospital Course Was the Problem List Reviewed?: Yes Hospital Course Ms. Mehta presented to the hospital with bloody diarrhea. Once admitted she was given IV fluids, Imodium and Terbutaline. She continued to contract despite Terbutaline, and, subsequently, Procardia. Eventually, she was started on Magnesium Sulfate. Stool cultures, stool for ova and parasites were ordered. However, over a three day course she finally improved. We were able to get switched over to Procardia. Her cultures were pending at the time of discharge. We will have her follow up within one week and will treat her if needed once we obtain her cultures. Labs Laboratory Tests 02/28/19 13:15: White Blood Count 14.7H, Red Blood Count 3.85L, Hemoglobin 11.3L, Mean Platelet Volume 11.2H, Neutrophils (%) (Auto) 85H, Lymphocytes (%) (Auto) 6L, Neutrophils # (Auto) 12.5H, Lymphocytes # (Auto) 0.9L, Monocytes # (Auto) 1.2H 02/28/19 21:30: Magnesium Level 4.5H 03/01/19 05:00: White Blood Count 17.8H, Red Blood Count 3.79L, Hemoglobin 11.4L, Mean Platelet Volume 11.4H, Neutrophils (%) (Auto) 86H, Lymphocytes (%) (Auto) 6L, Neutrophils # (Auto) 15.3H, Monocytes # (Auto) 1.5H, Magnesium Level 5.5#*H, Hematocrit 34L 03/02/19 05:05: White Blood Count 16.0H, Red Blood Count 3.56L, Hemoglobin 10.6L, Mean Platelet Volume 11.0H, Magnesium Level 6.4*H, Hematocrit 32L, Sodium Level 131L, Potass ium Level 3.3L, Carbon Dioxide Level 20L, Blood Urea Nitrogen < 2L, Creatinine 0.57L, Glucose Level 107H, Calcium Level 5.9*L Procedures None. Discharge Physical Examination Allergies: Coded Allergies: No Known Drug Allergies (Unverified , 02/26/19) Vitals & I&Os Vital Signs Date Time Temp Pulse Resp B/P (MAP) Pulse Ox O2 Delivery O2 Flow Rate FiO2 03/03/19 07:00 90 18 104/56 (72) Room Air 03/03/19 05:02 98.6 03/03/19 00:00 97 General Appearance: Alert, Oriented X3, Cooperative, No Acute Distress HEENT: Atraumatic Respiratory: Clear to Auscultation Cardiovascular: Regular Rate, No Murmurs Abdominal: Normal Bowel Sounds Extremities: No Clubbing, No Cyanosis Skin: No Rashes Neuro: Normal Gait, Normal Speech Psych/Mental Status: Mental Status NL Discharge Home Medications Reviewed and agree with Discharge Medication list on patient's Discharge Instruction sheet Instructions to Patient/Family Please see electronic discharge instructions given to patient. LUPE HOLLIS DO Mar 03, 2019 09:19
[2019-03-03] MEDS ORDERED: NIFE10CA44 PO (09:21)
--- NOTE | 2019-03-03 09:57 | NUR ---
dismissal instructions given, verbalizes understanding. reviewed Procardia Rx administration schedule. signature page signed, placed on chart.
--- NOTE | 2019-03-03 10:10 | NUR ---
pt dismissed to private vehicle with this RN and @ side. pt stable with no sx's of distress noted.
--- OUTSIDE RECORDS SUMMARY | 2019-03-04 12:33 | XMS REPORT | Continuity of Care Document ---
[...] 11.4 fL 7.5-12.5 ABSOLUTE NEUTROPHILS 7909 cells/uL [id number] ABSOLUTE LYMPHOCYTES 1333 cells/uL [id number] ABSOLUTE MONOCYTES [...] Status Pt. Type Provider Facility Loc./Unit Complaint [id number] 02/16/2019 09:30:00 02/16/2019 23:59:59 [facility] Outpatient AGNES KINCAID [facility] [id number] 01/07/2019 10:00:00 Document Registration [id number] 11/09/2018 15:45:00 Document Registration
== END 2019-03-03 10:10 | disposition home or self-care (01) | DRG 832 ==
LOC: WSo 21:00 → LDRP 21:01 → OBSVTOIN 02-28 07:27 → UNDOADMOB 02-28 12:20 → OBSVTOIN 02-28 12:20 → INTOOBSV 02-28 12:20 → WSo 02-28 12:20 → LDRP 02-28 12:20 → UNDODISIN 03-03 10:10 → EDSTATUS 03-04 12:28
PROVIDERS: ADMIT Family Medicine; ATTEND Obstetrics & Gynecology
PROC: 0DJD8ZZ Inspection of Lower Intestinal Tract, Via Natural or Artificial Opening Endoscopic (ICD-10-PCS; principal; 2019-02-28)
DX: O98.813 Other maternal infectious and parasitic diseases complicating pregnancy, third trimester (principal); A03.8 Other shigellosis; O47.03 False labor before 37 completed weeks of gestation, third trimester; Z3A.34 34 weeks gestation of pregnancy
CPT/HCPCS: 36415; 80048; 83735; 85025; 85027; 87015; 87045; 87046; 87324; 87328; 87329; 87425; 87449; 87899; 99211; G0378

== ENCOUNTER 2019-03-29 19:55 | Inpatient (IN) | payer BC ==
[~2019-03-29] VITALS: Ht 162.6 cm; Wt 79.3 kg
[~2019-03-29 19:55] MED LIST: NIFE10CA44 PO
--- NOTE | 2019-03-29 20:05 | NUR ---
ANGELA DAVEY presented to unit via from ED, accompanied by , FOR INDUCTION. ANGELA DAVEY weighed, gowned, voided, and to bed. EFHM and TOCO applied, VS taken. ANGELA DAVEY oriented to bed controls, call light, TV, heat, and A/C controls.
[2019-03-29] MEDS ORDERED: LACTATED RINGERS 1,000 ML IV SCH (20:09)
--- NOTE | 2019-03-29 20:10 | NUR ---
DR HOLLIS CALLED TO NOTIFY OF PT ARRIVAL. ORDERS RECEIVED FOR ADMISSION.
[2019-03-29] MEDS ORDERED: MINERAL OIL CONCENTRATE 99.9% 15 ML UDC TOP PRN (20:15)
[2019-03-29 20:20] VITALS: BP 100/60
[2019-03-29] MEDS ORDERED: MISOPROSTOL 100 MCG (CYTOTEC) TAB ONE (20:22)
[2019-03-29] MEDS: D5 LR IV SOLUTION 1,000 ML IV SCH (20:50)
[2019-03-29] MEDS: MISOPROSTOL 100 MCG (CYTOTEC) TAB PV SCH (21:10)
[2019-03-29 21:31] LABS: BASOPHILS % (AUTO) 0 % (0-10); EOSINOPHILS # (AUTO) 0.1 10^3/uL (0.0-0.3); EOSINOPHILS % (AUTO) 1 % (0-10); HEMATOCRIT 32 % (35-52); HEMOGLOBIN 10.4 G/DL (11.5-16.0); LYMPHOCYTES # (AUTO) 2.3 X 10^3 (1.0-4.0); LYMPHOCYTES % (AUTO) 18 % (12-44); MEAN CORPUSCULAR HEMOGLOBIN 29 PG (25-34); MEAN CORPUSCULAR HGB CONC 33 G/DL (32-36); MEAN CORPUSCULAR VOLUME 90 FL (80-99); MEAN PLATELET VOLUME 11.7 FL (7.4-10.4); MONOCYTES # (AUTO) 0.6 X 10^3 (0.0-1.0); MONOCYTES % (AUTO) 5 % (0-12); NEUTROPHILS # (AUTO) 9.9 X 10^3 (1.8-7.8); NEUTROPHILS % (AUTO) 76 % (42-75); PLATELET COUNT 183 10^3/uL (130-400); RED CELL DISTRIBUTION WIDTH 13.2 % (10.0-14.5); WHITE BLOOD COUNT 12.9 10^3/uL (4.3-11.0)
[2019-03-29] MEDS ORDERED: CATHETER FLUSH 10 ML SYR IV SCH (22:00)
[2019-03-29 22:40] VITALS: BP 105/71
[2019-03-30] VITALS (64 sets, daily range): BP systolic 89–133; BP diastolic 53–91
[2019-03-30] MEDS: D5 LR IV SOLUTION 1,000 ML IV SCH ×3 (00:30→11:27)
[2019-03-30] MEDS ORDERED: MISOPROSTOL 100 MCG (CYTOTEC) TAB ONE (00:57)
[2019-03-30] MEDS: MISOPROSTOL 100 MCG (CYTOTEC) TAB PV SCH (01:10)
[2019-03-30] MEDS: OXYTOCIN/NORMAL SALINE 500 ML IV SCH ×2 (04:55→10:35)
[2019-03-30] MEDS ORDERED: SUFENTA 0.6MCG/ML BUPIVA 0.125 100 ML ONE (05:24)
--- NOTE | 2019-03-30 06:15 | History & Physical-OB ---
OB - Chief Complaint & HPI Date/Time Date of Admission: Date of Admission: Mar 29, 2019 at 19:55 Date seen by a Provider: Mar 30, 2019 Time Seen by a Provider: 05:55 Chief Complaint/History OB-Reason for Admission/Chief: Induction of Labor Hx : 1 Hx Para: 0 Expected Date of Delivery: Apr 06, 2019 Gestational Age in Weeks: 38 Gestational Age in Days: 5 Indication for : other (39 weeks) Admission Nurse Assessment Rev: Yes Allergies and Home Medications Allergies Coded Allergies: No Known Drug Allergies (Unverified , 02/26/19) Home Medications Nifedipine 10 Mg Capsule, 20 MG PO Q6H Prescribed by: LUPE HOLLIS on 03/03/19 0921 Patient Home Medication List Home Medication List Reviewed: Yes OB - History Hx of Present Care: Yes Ultrasounds: Normal mid trimester US Obstetrical Complications: Other (Gastroenteritis and dehydration and labor) Medical Complications: Gastrointestinal Obstetrical History Hx : 1 Hx Para: 0 Hx # Term Pregnancies: 0 Hx # Pregnancies: 0 Number of Living Children: 0 Hx Termination: No Hx Multiple Gestation: No Hx Ectopic : No Hx Stillbirth: No Hx Complication: No Hx Induced Hypertens: No Hx Maternal Gestational Diabet: No Hx Hemorrhage: No Patient Past Medical History Gastroenteritis 2. Dehydration 3. Threatened Labor Social History/Family History HIV/AIDS: No Recent Infectious Disease Expo: No Sexually Transmitted Disease: No Alcohol Use: Denies Use Recreational Drug Use: No 2nd Hand Smoke Exposure: No Immunizations Hepatitis B: Yes OB - Admission Exam Physical Exam Vitals: Vital Signs 03/29/19 03/30/19 22:40 01:10 Temp 97.3 Pulse 80 Resp 18 B/P (MAP) 111/73 (86) O2 Delivery Room Air HEENT: NCAT Heart: Rhythm Normal Lungs: Clear Abdomen: Gravid Reflexes: Normal Cervical Dilatation: 1cm Effacement: 25% Station: -3 Membranes: Intact Heart Rate: 130's Accelerations: Accelerations Present Decelerations: No Decelerations Short Term Variability: Present Coal Screener Variability: Average (6-25) Contractions on Admission: 6-10 Minutes Apart Intensity: Mild Salmon Scoring Tool (Modified) Dilation (cm): 1-2cm (1) Effacement (%): 31-51% (1) Descent/Station: -3 (0) Cervix Consistency: Medium(1) Cervix Position: Posterior (0) Subtract 1 point for: Nulliparity (-1) Labs Laboratory Tests Test 03/29/19 21:00 Range/Units White Blood Count 12.9 H 4.3-11.0 10^3/uL Red Blood Count 3.53 L 4.35-5.85 10^6/uL Hemoglobin 10.4 L 11.5-16.0 G/DL Hematocrit 32 L 35-52 % Mean Corpuscular Volume 90 80-99 FL Mean Corpuscular Hemoglobin 29 25-34 PG Mean Corpuscular Hemoglobin Concent 33 32-36 G/DL Red Cell Distribution Width 13.2 10.0-14.5 % Platelet Count 183 130-400 10^3/uL Mean Platelet Volume 11.7 H 7.4-10.4 FL Neutrophils (%) (Auto) 76 H 42-75 % Lymphocytes (%) (Auto) 18 12-44 % Monocytes (%) (Auto) 5 0-12 % Eosinophils (%) (Auto) 1 0-10 % Basophils (%) (Auto) 0 0-10 % Neutrophils # (Auto) 9.9 H 1.8-7.8 X 10^3 Lymphocytes # (Auto) 2.3 1.0-4.0 X 10^3 Monocytes # (Auto) 0.6 0.0-1.0 X 10^3 Eosinophils # (Auto) 0.1 0.0-0.3 10^3/uL Basophils # (Auto) 0.0 0.0-0.1 10^3/uL OB - Assessment/Plan/Diagnosis Assessment Assessment: induction of labor Admission Dx Intrauterine at 39 weeks Admission Status: Inpatient Order (span 2 midnights) Reason for Inpatient Admission: Intrauterine at 39 weeks admitted for Cervical Ripening followed by Pitocin Induction Plan Plan: Induction Induction Method: per Pitocin Protocol LUPE HOLLIS DO Mar 30, 2019 06:15
[2019-03-30] MEDS ORDERED: fentaNYL INJECTION 100 MCG/2 ML AMP ONE (06:27)
[2019-03-30] MEDS ORDERED: LACTATED RINGERS 1,000 ML IV ONE (07:28)
[2019-03-30] MEDS ORDERED: EPIDURAL (SUFENTA 0.6MCG/ML BUPIVA 0.125%) 100 ML BAG EPI SCH (07:30)
[2019-03-30] MEDS ORDERED: NALOXONE 0.4 MG/ML 1 ML (NARCAN) VIAL IV PRN (07:30)
--- NOTE | 2019-03-30 08:45 | NUR ---
PT REPORT RECEIVED BY BRYCE MORRIS. THIS RN ASSUMES CARE FOR PT AT THIS TIME. RN INTRODUCES SELF TO PT AND SO. PHYSICAL ASSESSMENT COMPLETED.
--- NOTE | 2019-03-30 10:29 | NUR ---
DR HOLLIS CALLED BY THIS RN WITH UPDATED PT REPORT. EPIDURAL IN PLACE, PT COMFORTABLE. SVE BY THIS RN /. FHT STRIP DESCRIBED TO DR HOLLIS. UC PATTERN IS DYSFUNCTIONAL WITH UC EVERY 1-2M WITH OCCASIONAL 3-4M BREAK. FHT MODERATE VARIABILITY WITHOUT ACCELS. NO VARIABLES PRESENT AT THIS TIME. DR HOLLIS WANTS TO RESTART PITOCIN AT THIS TIME. START AT 2 MILLIUNITS/HR AND INCREASE BY 2 NO SOONER THAN EVERY 15 MIN.
[2019-03-30] MEDS ORDERED: ONDANSETRON 4 MG/2 ML (SDV) Z0FRAN ONE (11:23)
[2019-03-30] MEDS ORDERED: ONDANSETRON 4 MG/2 ML (SDV) Z0FRAN IVP PRN (11:30)
--- NOTE | 2019-03-30 12:55 | NUR ---
DR HOLLIS CALLED FOR UPDATED PT REPORT. SVE NO CHANGE. SVE BY THIS RN 1 HR AGO, /-2. UC PATTERN IRREGULAR 1-3MIN, FHT DESCRIBED TO DR. GUARDADOOCIN RATE AT 12. NO NEW ORDERS AT THIS TIME.
--- NOTE | 2019-03-30 15:12 | NUR ---
this rn calls dr matt with updated pt report. sve /+[address] matt says he will finish up there and head this way.
[2019-03-30] MEDS ORDERED: LIDOCAINE 1% INJ 20 ML 20 ML VIAL ONE ×2 (15:52→18:17)
--- NOTE | 2019-03-30 18:51 | OB Labor & Delivery Record ---
Vag Delivery Note Vag Delivery Note Date of Delivery: 03/30/19 Preoperative Diagnosis: Sandhya Mehta is a (28 /Para 1 / 0, Gestational Age (wks)39 Postoperative Diagnosis: Same Surgeon: LUPE HOLLIS Exterior Door Installer: [None] Anesthesia: [Epidural] Delivery Type: [Normal Spontaneous Vaginal Delivery with Midline Episiotomy and Repair (vaginal sulci laceration repaired, too] Findings: [] Viable [male] , apgars [8, 9], weight [] Lacerations:Episiotomy and vaginal sulcus laceration repaired with 3-0 and 2-0 Vicryl Intact placenta with 3 vessel cord. No nuchal cord, body cord or shoulder dystocia Cytotec 800 mcg placed for hemorrhage prophylaxis Estimated Blood Loss: [300 ml Complications: None Condition: Stable Description of Procedure: The patient is a 28 year old female who presented [for Pitocin Induction of [place]]. She was admitted and informed consent was obtained. Her labor course was remarkable for [dysfunctional contraction pattern] She progressed to complete dilatation and began to push. She was then set up for delivery. The 's head was delivered atraumatically in the [CATALINA] position. Nuchal cord x 1, manually reduced. The shoulders and remainder of the infant's body were then delivered without difficulty. Upon delivery, the head was held below the level of the perineum and the mouth and nares were bulb suctioned. The cord was doubly clamped and cut and the infant was handed off to the pediatric staff. Cord blood was obtained. An intact placenta with 3-vessel cord delivered via Jaqueline and there was found to be minimal bleeding.~ Vigorous fundal massage was performed and the fundus was found to be firm. IV oxytocin was given. Examination of the vagina and perineum revealed a midline episiotomy and vaginal sulcus lacerationrepaired in the usual fashion with 2-0 and 3-0 vicryl suture. Following the repair, sponge, instrument and needle counts were correct. Mom and baby were both in stable condition in the labor suite. Vitals - Labs Vital Signs - I&O Vital Signs Date Time Temp Pulse Resp B/P (MAP) Pulse Ox O2 Delivery O2 Flow Rate FiO2 03/30/19 16:15 115 115/74 (88) Room Air 03/30/19 16:00 94 110/71 (84) Room Air 03/30/19 15:45 100 114/71 (85) Room Air 03/30/19 15:30 107 113/73 (86) Room Air 03/30/19 15:15 112 18 116/78 (91) Room Air 03/30/19 15:00 98.1 83 114/69 (84) Room Air 03/30/19 14:45 83 108/68 (81) Room Air 03/30/19 14:30 86 101/68 (79) Room Air 03/30/19 14:15 82 124/91 (102) Room Air 03/30/19 14:00 98.6 86 18 109/72 (84) Room Air 03/30/19 13:45 63 107/67 (80) Room Air 03/30/19 13:30 81 113/72 (86) Room Air 03/30/19 13:15 71 110/70 (83) Room Air 03/30/19 13:00 86 110/73 (85) Room Air 03/30/19 12:45 98.0 75 16 96/56 (69) Room Air 03/30/19 12:30 65 89/53 (65) Room Air 03/30/19 12:15 62 102/55 (71) Room Air 03/30/19 12:00 68 102/54 (70) Room Air 03/30/19 11:45 Room Air 03/30/19 11:30 85 16 104/62 (76) Room Air 03/30/19 11:15 91 112/64 (80) Room Air 03/30/19 11:00 81 109/55 (73) Room Air 03/30/19 10:45 83 100/56 (71) Room Air 03/30/19 10:30 97.9 76 99/55 (70) Room Air 03/30/19 10:15 68 16 108/59 (75) Room Air 03/30/19 10:00 96 100/63 (75) Room Air 03/30/19 09:45 79 104/62 (76) Room Air 03/30/19 09:30 82 123/63 (83) Room Air 03/30/19 09:15 75 106/65 (79) Room Air 03/30/19 09:00 98.0 85 18 103/55 (71) 98 Room Air 03/30/19 08:40 67 16 97/53 (68) 97 Room Air 03/30/19 08:25 70 16 99/57 (71) 100 Room Air 03/30/19 08:10 66 16 95/57 (70) 99 Room Air 03/30/19 07:55 69 16 94/59 (71) 98 Room Air 03/30/19 07:42 67 16 101/64 (76) 98 Room Air 03/30/19 07:27 98.3 82 16 101/64 (76) 98 Room Air 03/30/19 07:10 92 16 109/65 (80) 98 Room Air 03/30/19 06:55 106/69 (81) 03/30/19 06:55 78 16 99 Room Air 03/30/19 06:40 03/30/19 06:40 78 16 99 Room Air 03/30/19 06:40 118/66 (83) 03/30/19 06:25 93 16 99 Room Air 03/30/19 06:23 84 18 115/74 (88) 98 Room Air 03/30/19 06:20 93 18 116/79 (91) 98 Room Air 03/30/19 06:16 86 18 115/74 (88) 97 Room Air 03/30/19 06:10 92 18 111/75 (87) 98 Room Air 03/30/19 06:04 94 18 112/80 (91) 98 Room Air 03/30/19 05:55 97.4 82 18 117/79 (92) 99 Room Air 03/30/19 01:10 97.3 80 18 111/73 (86) 03/29/19 22:40 98.0 88 16 105/71 (82) Room Air 03/29/19 20:20 97.8 112 16 100/60 (73) Room Air Labs Laboratory Tests 03/29/19 21:00: White Blood Count 12.9H, Red Blood Count 3.53L, Hemoglobin 10.4L, Hematocrit 32L , Mean Corpuscular Volume 90, Mean Corpuscular Hemoglobin 29, Mean Corpuscular Hemoglobin Concent 33, Red Cell Distribution Width 13.2, Platelet Count 183, Mean Platelet Volume 11.7H, Neutrophils (%) (Auto) 76H, Lymphocytes (%) (Auto) 18, Monocytes (%) (Auto) 5, Eosinophils (%) (Auto) 1, Basophils (%) (Auto) 0, Neutrophils # (Auto) 9.9H, Lymphocytes # (Auto) 2.3, Monocytes # (Auto) 0.6, Eosinophils # (Auto) 0.1, Basophils # (Auto) 0.0 LUPE HOLLIS DO Mar 30, 2019 18:51
[2019-03-30] MEDS ORDERED: OXYTOCIN/NORMAL SALINE 500 ML IV SCH (18:52)
[2019-03-30] MEDS ORDERED: WITCH HAZEL(TUCKS) 40 EA JAR TOP PRN (19:00)
[2019-03-30] MEDS ORDERED: BENZOCAINE/MENTHOL (DERMOPLAST) 56 ML CAN TP PRN (19:00)
[2019-03-30] MEDS ORDERED: MEASLES,MUMPS,RUBELLA 1 EA INJ SQ ONE (19:00)
[2019-03-30] MEDS ORDERED: TETANUS,DIPTH,PERTUSS P/F (BOOSTRIX) 0.5 ML VIAL IM ONE (19:00)
[2019-03-30] MEDS ORDERED: DIBUCAINE (NUPERCAINAL) 1% OINT 30 GM TOP PRN (19:00)
--- NOTE | 2019-03-30 19:34 | NUR ---
1700: dr matt at bedside, sve 10cm 1710: dr matt and this rn at bedside, begin pushing at this time 1820: delivery of head 182: spontaneous vaginal delivery of viable male infant. nuchal x1. midline epis. ebl 300 1826: spontaneous delivery of intact placenta 1845: recovery period begins at this time. fundus firm, midline, 2 below, light bleeding. linens changed, pericare. call light within reach.
[2019-03-30] MEDS ORDERED: LIDOCAINE 1% INJ 20 ML 20 ML VIAL INJ ONE (19:45)
[2019-03-30] MEDS: IBUPROFEN 800 MG (MOTRIN) TAB PO SCH (20:07)
[2019-03-30] MEDS ORDERED: CATHETER FLUSH 10 ML SYR IV SCH (22:00)
[2019-03-30] MEDS: DOCUSATE SODIUM 100 MG (COLACE) CAP PO SCH (22:33)
[2019-03-31] VITALS: BP 103/61
[2019-03-31] MEDS: ACETAMINOPHEN 500 MG TAB (TYLENOL) PO SCH ×3 (00:50→15:20)
[2019-03-31] MEDS: IBUPROFEN 800 MG (MOTRIN) TAB PO SCH ×3 (02:07→15:20)
[2019-03-31 04:00] VITALS: BP 96/60
[2019-03-31] MEDS: D5 LR IV SOLUTION 1,000 ML IV SCH (04:39)
[2019-03-31] MEDS: PRENATAL VITAMIN 1 EA TAB PO SCH ×2 (06:40→09:20)
[2019-03-31 06:57] LABS: BASOPHILS % (AUTO) 0 % (0-10); EOSINOPHILS # (AUTO) 0.1 10^3/uL (0.0-0.3); EOSINOPHILS % (AUTO) 0 % (0-10); HEMATOCRIT 29 % (35-52); HEMOGLOBIN 9.6 G/DL (11.5-16.0); LYMPHOCYTES % (AUTO) 9 % (12-44); MEAN CORPUSCULAR HEMOGLOBIN 30 PG (25-34); MEAN CORPUSCULAR HGB CONC 33 G/DL (32-36); MEAN CORPUSCULAR VOLUME 91 FL (80-99); MEAN PLATELET VOLUME 12.1 FL (7.4-10.4); MONOCYTES # (AUTO) 1.7 X 10^3 (0.0-1.0); MONOCYTES % (AUTO) 8 % (0-12); NEUTROPHILS # (AUTO) 17.5 X 10^3 (1.8-7.8); NEUTROPHILS % (AUTO) 82 % (42-75); PLATELET COUNT 168 10^3/uL (130-400); RED CELL DISTRIBUTION WIDTH 13.2 % (10.0-14.5); WHITE BLOOD COUNT 21.2 10^3/uL (4.3-11.0)
--- NOTE | 2019-03-31 08:10 | NUR ---
here. dismissal orders received.
--- NOTE | 2019-03-31 08:34 | Discharge Summary ---
Diagnosis/Chief Complaint Date of Admission Mar 29, 2019 at 19:55 Date of Discharge February 28, 2019 Discharge Date: Mar 31, 2019 Discharge Time: 19:00 Admission Diagnosis Admission Diagnosis Intrauterine at 39 weeks Discharge Diagnosis Intrauterine at 39 weeks--delivered Reason Hospital Visit Cytotec Cervical Ripening followed by Pitocin Induction of Labor Discharge Summary Hospital Course Was the Problem List Reviewed?: Yes Hospital Course Ms. Mehta was admitted for Cytotec Cervical Ripening. Then, she was started on Pitocin. I artificially ruptured her membranes. She received an epidural for antepartum pain management. She progressed to complete dilation. Pushed for approximately an hour and delivered a healthy viable male without co mplications. The remainder of her hospitalization was unremarkable. Her vital signs remained stable throughout her hospitalization. She will be discharged to home with instructions, prescriptions, and a follow up appointment. Labs Laboratory Tests 03/29/19 21:00: White Blood Count 12.9H, Red Blood Count 3.53L, Hemoglobin 10.4L, Hematocrit 32L , Mean Platelet Volume 11.7H, Neutrophils (%) (Auto) 76H, Neutrophils # (Auto) 9.9H 03/31/19 06:21: White Blood Count 21.2H, Red Blood Count 3.23L, Hemoglobin 9.6L, Hematocrit 29L, Mean Platelet Volume 12.1H, Neutrophils (%) (Auto) 82H, Neutrophils # (Auto) 17.5H, Lymphocytes (%) (Auto) 9L, Monocytes # (Auto) 1.7H Procedures None. Discharge Physical Examination Allergies: Coded Allergies: No Known Drug Allergies (Unverified , 02/26/19) Vitals & I&Os Vital Signs Date Time Temp Pulse Resp B/P (MAP) Pulse Ox O2 Delivery O2 Flow Rate FiO2 03/31/19 04:00 97.8 75 18 96/60 (72) 96 Room Air General Appearance: Alert, Oriented X3, Cooperative HEENT: Atraumatic Respiratory: Clear to Auscultation Cardiovascular: Regular Rate, No Murmurs Abdominal: Normal Bowel Sounds, No Tenderness Extremities: No Clubbing, No Cyanosis Skin: No Rashes Neuro: Normal Gait, Normal Speech Psych/Mental Status: Mental Status NL Discharge Home Medications Reviewed and agree with Discharge Medication list on patient's Discharge Instruction sheet Condition at Discharge Good Instructions to Patient/Family Please see electronic discharge instructions given to patient. Clinical Quality Measures DVT/VTE Risk/Contraindication: Risk Factor Score Per Nursin RFS Level Per Nursing on Admit: 1=Low/No VTE PPX LUPE HOLLIS DO Mar 31, 2019 08:34
[2019-03-31] MEDS ORDERED: DOCU100C37 PO (08:38)
[2019-03-31] MEDS ORDERED: OXC5T PO (08:38)
[2019-03-31] MEDS ORDERED: IBUP-1780 PO (08:38)
[2019-03-31] MEDS ORDERED: ACET-77 PO (08:38)
--- NOTE | 2019-03-31 08:42 | Anesthesia-Regional Post-Op ---
Regional Patient Condition Mental Status: Alert, Oriented x3 Circulation: Same as Pre-Op Headache: Absent Sensation: Full Recovery Motor Block: Absent Post Op Complications Complications None Follow Up Care/Instructions Patient Instructions None needed. Anesthesia/Patient Condition Patient is doing well, no complaints, stable vital signs, no apparent adverse anesthesia problems. No complications reported per nursing. MARCO ANTONIO CIFUENTES CRNA Mar 31, 2019 08:42
[2019-03-31] MEDS: DOCUSATE SODIUM 100 MG (COLACE) CAP PO SCH (09:21)
--- NOTE | 2019-03-31 09:25 | NUR ---
initial shift assessment completed, see interventions for further. voices no c/o's @ time. family and infant @ side.
[2019-03-31 15:20] VITALS: BP 95/62
[2019-03-31] MEDS ORDERED: TETANUS,DIPTH,PERTUSS P/F (BOOSTRIX) 0.5 ML VIAL IM ONE (17:09)
--- NOTE | 2019-03-31 17:25 | NUR ---
dismissal instructions given, verbalizes understanding. reviewed dismissal medications and follow up appointment. signature page signed and placed on chart.
--- NOTE | 2019-03-31 19:00 | NUR ---
report given to next shift.
[2019-03-31 20:08] VITALS: BP 116/75
[2019-03-31 20:15] VITALS: BP 116/75
--- NOTE | 2019-03-31 20:15 | NUR ---
D/C instructions reviewed w/pt, verbalized understanding. Pt. left [facility] via W/C escorted by this RN, student RN & w/infant on lap properly restrained in carseat, pt. to home via private vehicle after she & properly restrained. Pt's belongings & D/C instructions w/pt.
== END 2019-03-31 20:15 | disposition home or self-care (01) | DRG 807 ==
LOC: LDRP 19:55
PROVIDERS: ADMIT Obstetrics & Gynecology; ATTEND Obstetrics & Gynecology
PROC: 3E033VJ Introduction of Other Hormone into Peripheral Vein, Percutaneous Approach (ICD-10-PCS; 2019-03-29)
PROC: 3E0P7GC Introduction of Other Therapeutic Substance into Female Reproductive, Via Natural or Artificial Opening (ICD-10-PCS; 2019-03-29)
PROC: 10E0XZZ Delivery of Products of Conception, External Approach (ICD-10-PCS; principal; 2019-03-30)
PROC: 0W8NXZZ Division of Female Perineum, External Approach (ICD-10-PCS; 2019-03-30)
PROC: 0UQGXZZ Repair Vagina, External Approach (ICD-10-PCS; 2019-03-30)
DX: O71.4 Obstetric high vaginal laceration alone (principal); Z3A.39 39 weeks gestation of pregnancy; Z37.0 Single live birth; Z23 Encounter for immunization
CPT/HCPCS: 36415; 85025; 86850; 86900; 86901; 90715

== ENCOUNTER → 2020-04-16 | Outpatient (CLI) | payer BC ==
[~2020-04-16] MED LIST changes: +ACET-78 PO; +DOCU100C37 PO; +IBUP-1780 PO; +OXC5T PO
== END ==
LOC: LAB FS 15:38
PROVIDERS: ATTEND Obstetrics & Gynecology
DX: N91.2 Amenorrhea, unspecified (principal)
CPT/HCPCS: 36415; 84702